=== PATIENT | male | born 1995 | race Caucasian/White ===

== ENCOUNTER 2016-12-28 17:15 | Emergency (ER) | payer SELFPAY ==
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
[2016-12-28] MEDS ORDERED: Sulfamethoxazole/TMP 800/160mg Tab ONE (17:57)
[2016-12-28] MEDS: Sulfamethoxazole/TMP 800/160mg Tab PO ONE (18:00)
== END 2016-12-28 18:18 | disposition home or self-care (01) ==
LOC: ER 17:15
DX: S80.812A Abrasion, left lower leg, initial encounter (principal); S90.512A Abrasion, left ankle, initial encounter; F17.200 Nicotine dependence, unspecified, uncomplicated; X58.XXXA Exposure to other specified factors, initial encounter; Y93.89 Activity, other specified; Y92.89 Other specified places as the place of occurrence of the external cause; Y99.8 Other external cause status
CPT/HCPCS: Z7502; Z7610

== ENCOUNTER 2017-01-18 18:43 | Emergency (ER) | payer SELFPAY ==
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
== END 2017-01-18 20:23 | disposition home or self-care (01) ==
LOC: ER 18:43
DX: L98.8 Other specified disorders of the skin and subcutaneous tissue (principal); F17.210 Nicotine dependence, cigarettes, uncomplicated
CPT/HCPCS: Z7502